=== PATIENT | female | born 1940 ===

== ENCOUNTER 2021-05-24 06:28 | Day surgery (SDC) | payer OTHER ==
[~2021-05-24 06:28] MED LIST: ACTONEL150 MG PO; ARICEPT5 MG PO; COZAAR100 MG PO; OXYCODONE HCL10 M1 PO; SERTRALINE HCL100 MG PO; ZOCOR20 MG PO
[2021-05-24] MEDS ORDERED: MACROBID 100 M100 MG PO (11:11)
[2021-05-24] MEDS ORDERED: ULTRACET PO (11:11)
== END 2021-05-24 15:45 | disposition home or self-care (01) ==
LOC: CIR.AMB 06:28
PROVIDERS: ATTEND Obstetrics & Gynecology Gynecology
DX: N81.11 Cystocele, midline (principal); Z20.822 Contact with and (suspected) exposure to COVID-19